=== PATIENT | female | born 1955 | race Caucasian/White ===

== ENCOUNTER → 2016-12-28 | Outpatient (CLI) | payer OTHER ==
--- NOTE | 2016-12-28 13:16 | DI ---
Indication: ITS.REASON: M54.2 CERVICALGIA; M25.511 PAIN IN RIGHT SHOULDER PROCEDURE: SHOULDER RIGHT 3 VIEWS: Encounter: Initial Comparison: None Findings: There is no acute fracture, dislocation or malalignment identified. No significant acromioclavicular or glenohumeral degenerative changes for age. Impression: No acute osseous abnormality. .
--- NOTE | 2016-12-28 14:00 | DI ---
Indication: ITS.REASON: M54.2 CERVICALGIA; M25.511 PAIN IN RIGHT SHOULDER PROCEDURE: CERVICAL SPINE 4 OR 5 VIEWS: Encounter: Initial Comparison: None Findings: Alignment of the cervical spine shows reversal of the normal cervical lordosis with kyphosis centered at the C4 level. Cervicothoracic junction is intact. No acute fracture or subluxation seen. Severe disk space narrowing at C4-C5 with moderate disk height loss at C5-C6 and C6-C7. Oblique views show no obvious neural foraminal stenosis. Degenerative facet and uncovertebral hypertrophy throughout the mid to lower cervical spine. Impression: Degenerative disk disease of the mid to lower cervical spine. .
== END ==
LOC: IMA 12:13
PROVIDERS: ATTEND Family Medicine
DX: M50.321 Other cervical disc degeneration at C4-C5 level (principal); M50.322 Other cervical disc degeneration at C5-C6 level; M50.323 Other cervical disc degeneration at C6-C7 level; M47.812 Spondylosis without myelopathy or radiculopathy, cervical region; M25.511 Pain in right shoulder